=== PATIENT | female | born 1970 | race Caucasian/White ===

== ENCOUNTER 2018-06-09 05:45 | Day surgery (SDC) | payer OTHER ==
[2018-06-09] MEDS ORDERED: NAPROXEN500 MG PO (10:17)
[2018-06-09] MEDS ORDERED: ZITHROMAX TRI-500 MG PO (10:17)
[2018-06-09] MEDS ORDERED: ULTRACET PO (10:17)
== END 2018-06-09 14:00 | disposition home or self-care (01) ==
LOC: CIR.AMB 05:45
DX: D25.0 Submucous leiomyoma of uterus (principal); N92.0 Excessive and frequent menstruation with regular cycle